=== PATIENT | female | born 1990 | race Caucasian/White ===

== ENCOUNTER 2017-04-16 00:38 | Emergency (ER) | payer MEDICAID ==
[~2017-04-16] VITALS: Ht 175.3 cm; Wt 109.0 kg
[~2017-04-16 00:38] MED LIST: SERT50 PO
[2017-04-16 00:41] VITALS: BP 172/84; PULSE 96; RESP 16; TEMP 98.4; O2SAT 99
[2017-04-16] MEDS ORDERED: LORA-474 SL (00:48)
--- NOTE | 2017-04-16 01:12 | PD ---
HPI Chief Complaint: Dizziness Time Seen by Provider: 01:04 Travel History International Travel<30 days: No Contact w/Intl Traveler<30days: No Traveled to known affect area: No History of Present Illness HPI To 26 old woman who presents emergent from complaining of dizziness, feeling feverish, with some cough and stuffiness that started this morning. She is a history of anxiety. She states she also started having some abnormal bleeding. Her last initial period was about a week or 2 ago but she started having a little more bleeding today. Denies any abdominal pain. No vaginal discharge. No other complaints. History Past Medical History Narrative Medical Anxiety LMP: 04/16/17 : 1 Para: 1 Past Surgical History Surgical History: No Previous Surgery Social History Alcohol Use: No Tobacco Use: Yes (12PPD) Allergies-Medications (Allergen,Severity, Reaction): Coded Allergies: No Known Allergies (Verified , 04/16/17) Reported Meds & Prescriptions Reported Meds & Active Scripts Active Reported Ativan (Lorazepam) 1 Mg Tab 1 Mg SL BID PRN Review of Systems Except as stated in HPI: all other systems reviewed are Neg Physical Exam Narrative GENERAL: Well-appearing 26 year-old woman, no acute distress. SKIN: Focused skin assessment warm/dry. HEAD: Atraumatic. Normocephalic. EYES: Pupils equal and round. No scleral icterus. No injection or drainage. ENT: No nasal bleeding or discharge. Mucous membranes pink and moist. TMs normal. Throat is normal. NECK: Trachea midline. No JVD. No adenopathy. CARDIOVASCULAR: Regular rate and rhythm. No murmur appreciated. RESPIRATORY: No accessory muscle use. Clear to auscultation. Breath sounds equal bilaterally. GASTROINTESTINAL: Abdomen soft, non-tender, nondistended. Hepatic and splenic margins not palpable. MUSCULOSKELETAL: No obvious deformities. Data Data Last Documented VS Vital Signs Date Time Temp Pulse Resp B/P Pulse Ox O2 Delivery O2 Flow Rate FiO2 04/16/17 00:41 98.4 96 16 172/84 99 Room Air Orders Ed Urine Pregnancytest Poc (04/16/17 01:10) MDM Medical Decision Making Medical Screen Exam Complete: Yes Emergency Medical Condition: Yes Differential Diagnosis URI, viral syndrome, dehydration, other Narrative Course Medical decision making So 26 old woman presents emergent heart sounds are she started sick. She is a little bit feverish, dizzy, with some cough and stuffiness. She looks well. She is a little bit abnormal bleeding. We'll check a . Otherwise outpatient follow-up, supportive treatment. Diagnosis Primary Impression: URI (upper respiratory infection) Additional Instructions: Take [id number] analgesics as needed for cough cold symptoms. Drink plenty of fluids and stay well-hydrated. Follow-up with her primary doctor for not completely well in 3-5 days. Med/Other Pt SpecificInfo: No Change to Meds Disposition: 01 DISCHARGE HOME Condition: Stable Cristóbal Lynn MD Apr 16, 2017 01:12
== END 2017-04-16 01:35 | disposition home or self-care (01) ==
LOC: NEPC 00:38
DX: J06.9 Acute upper respiratory infection, unspecified (principal); F17.200 Nicotine dependence, unspecified, uncomplicated
CPT/HCPCS: 84703; 99282

== ENCOUNTER 2018-02-22 12:29 | Emergency (ER) | payer MEDICAID ==
[~2018-02-22] VITALS: Ht 175.3 cm; Wt 112.0 kg
[~2018-02-22 12:29] MED LIST changes: +LORA-474 SL; -SERT50 PO
[2018-02-22 12:50] VITALS: BP 183/91; PULSE 81; RESP 17; TEMP 98.6; O2SAT 99
[2018-02-22 13:54] LABS: AUTOMATED NEUTROPHIL # 7.8 TH/MM3 (1.8-7.7); BASOPHIL % 0.4 % (0.0-2.0); EOSINOPHIL # 0.1 TH/MM3 (0-0.4); EOSINOPHIL % 0.5 % (0.0-4.0); HEMATOCRIT 43.8 % (35.0-46.0); HEMOGLOBIN 14.6 GM/DL (11.6-15.3); LYMPH % 20.1 % (9.0-44.0); LYMPHOCYTE # 2.3 TH/MM3 (1.0-4.8); MEAN CELL VOLUME 89.3 FL (80.0-100.0); MEAN CORPUSCULAR HEMOGLOBIN 29.8 PG (27.0-34.0); MEAN CORPUSCULAR HGB CONC 33.4 % (32.0-36.0); MEAN PLATELET VOLUME 9.5 FL (7.0-11.0); MONOCYTE # 1.1 TH/MM3 (0-0.9); PLATELET COUNT 189 TH/MM3 (150-450); RED BLOOD COUNT 4.91 MIL/MM3 (4.00-5.30); RED CELL DISTRIBUTION WIDTH 14.9 % (11.6-17.2); WHITE BLOOD COUNT 11.3 TH/MM3 (4.0-11.0)
[2018-02-22 14:06] LABS: ALBUMIN 3.5 GM/DL (3.4-5.0); AST (GOT) 7 U/L (15-37); BICARBONATE 22.6 MEQ/L (21.0-32.0); BLOOD UREA NITROGEN 13 MG/DL (7-18); CALCIUM 9.2 MG/DL (8.5-10.1); CHLORIDE 106 MEQ/L (98-107); CREATININE 0.79 MG/DL (0.50-1.00); GLOMERULAR FILTRATION RATE 89 ML/MIN (>89); GLUCOSE,RANDOM 84 MG/DL (74-106); SODIUM (NA) 139 MEQ/L (136-145)
[2018-02-22 14:10] LABS: ALKALINE PHOSPHATASE 58 U/L (45-117); ALT (GPT) 20 U/L (10-53); TOTAL BILIRUBIN ADULT 0.3 MG/DL (0.2-1.0); TOTAL PROTEIN 8.1 GM/DL (6.4-8.2)
[2018-02-22 14:19] VITALS: PULSE 84; RESP 20; TEMP 99.1; O2SAT 98
[2018-02-22] MEDS ORDERED: PENICILLIN G BENZATHINE 1,200,000 UNITS/2 ML SYRINGE IM ONE (14:30)
[2018-02-22] MEDS ORDERED: DEXAMETHASONE SOD PHOS 20 MG/5 ML VIAL IM ONE (14:30)
[2018-02-22] MEDS ORDERED: MEDR4PAK PO (14:35)
--- NOTE | 2018-02-22 14:40 | PD ---
HPI Chief Complaint: ENT Complaint Time Seen by Provider: 14:27 Travel History International Travel<30 days: No Contact w/Intl Traveler<30days: No Traveled to known affect area: No History of Present Illness HPI Patient came in complaining of a sore throat that she has been having for the past 5-6 days, she then followed up at [facility] where she had a test that was positive for strep C and the patient was given Decadron and started on amoxicillin. Patient denies any nausea vomiting diarrhea, fever, rash, headache/neck pain/neck stiffness/back pain, abdominal pain. Patient also denies any associated dysuria/frequency/urgency. No known drug allergy Past medical history significant for anxiety half pack a day smoker and has history of panic attacks. PFSH Past Medical History ADHD: No Anxiety: Yes Cancer: No Diabetes: No Diminished Hearing: No Headaches: No Psychiatric: Yes Immunizations Current: Yes Migraines: No Seizures: No Thyroid Disease: No Ulcer: No ?: Not : 1 Para: 1 Miscarriage: 0 : 0 Past Surgical History Appendectomy: No Section: No Cholecystectomy: No Social History Alcohol Use: No Tobacco Use: Yes (1/2PPD) Substance Use: No Allergies-Medications (Allergen,Severity, Reaction): Coded Allergies: No Known Allergies (Verified Allergy, Unknown, 02/22/18) Reported Meds & Prescriptions Reported Meds & Active Scripts Active Medrol Dosepak (Methylprednisolone) 4 Mg Dspk 4 Mg PO DIRECTED Per Pharmacist direction Reported Ativan (Lorazepam) 1 Mg Tab 1 Mg SL BID PRN Review of Systems General / Constitutional: No: Fever Eyes: No: Visual changes HENT: Positive: Sore Throat Cardiovascular: No: Chest Pain or Discomfort Respiratory: No: Shortness of Breath Gastrointestinal: No: Abdominal Pain Genitourinary: No: Dysuria Musculoskeletal: No: Pain Skin: No Rash Neurologic: No: Weakness Psychiatric: No: Depression Endocrine: No: Polydipsia Hematologic/Lymphatic: No: Easy Bruising Physical Exam Narrative GENERAL: SKIN: Warm and dry. HEAD: Atraumatic. Normocephalic. EYES: Pupils equal and round. No scleral icterus. No injection or drainage. ENT: No nasal bleeding or discharge. Mucous membranes pink and moist. Erythematous edematous and exudates present NECK: Trachea midline. No JVD. Anterior cervical lymphadenopathy present CARDIOVASCULAR: Regular rate and rhythm. RESPIRATORY: No accessory muscle use. Clear to auscultation. Breath sounds equal bilaterally. GASTROINTESTINAL: Abdomen soft, non-tender, nondistended. Hepatic and splenic margins not palpable. MUSCULOSKELETAL: Extremities without clubbing, cyanosis, or edema. No obvious deformities. NEUROLOGICAL: Awake and alert. No obvious cranial nerve deficits. Motor grossly within normal limits. Five out of 5 muscle strength in the arms and legs. Normal speech. PSYCHIATRIC: Appropriate mood and affect; insight and judgment normal. Data Data Last Documented VS Vital Signs Date Time Temp Pulse Resp B/P (MAP) Pulse Ox O2 Delivery O2 Flow Rate FiO2 02/22/18 14:19 99.1 84 20 98 Room Air 02/22/18 12:50 183/91 (121) Orders Orders Complete Blood Count With Diff (02/22/18 12:52) Comprehensive Metabolic Panel (02/22/18 12:52) Lactic Acid Sepsis Protocol (02/22/18 12:52) Dexamethasone Inj (Decadron Inj) (02/22/18 14:30) Penicillin G Benzathine Inj (Bicillin L- (02/22/18 14:30) Labs Laboratory Tests Test 02/22/18 13:20 White Blood Count 11.3 TH/MM3 Red Blood Count 4.91 MIL/MM3 Hemoglobin 14.6 GM/DL Hematocrit 43.8 % Mean Corpuscular Volume 89.3 FL Mean Corpuscular Hemoglobin 29.8 PG Mean Corpuscular Hemoglobin Concent 33.4 % Red Cell Distribution Width 14.9 % Platelet Count 189 TH/MM3 Mean Platelet Volume 9.5 FL Neutrophils (%) (Auto) 69.0 % Lymphocytes (%) (Auto) 20.1 % Monocytes (%) (Auto) 10.0 % Eosinophils (%) (Auto) 0.5 % Basophils (%) (Auto) 0.4 % Neutrophils # (Auto) 7.8 TH/MM3 Lymphocytes # (Auto) 2.3 TH/MM3 Monocytes # (Auto) 1.1 TH/MM3 Eosinophils # (Auto) 0.1 TH/MM3 Basophils # (Auto) 0.0 TH/MM3 CBC Comment DIFF FINAL Differential Comment Blood Urea Nitrogen 13 MG/DL Creatinine 0.79 MG/DL Random Glucose 84 MG/DL Total Protein 8.1 GM/DL Albumin 3.5 GM/DL Calcium Level 9.2 MG/DL Alkaline Phosphatase 58 U/L Aspartate Amino Transf (AST/SGOT) 7 U/L Alanine Aminotransferase (ALT/SGPT) 20 U/L Total Bilirubin 0.3 MG/DL Sodium Level 139 MEQ/L Potassium Level 3.6 MEQ/L Chloride Level 106 MEQ/L Carbon Dioxide Level 22.6 MEQ/L Anion Gap 10 MEQ/L Estimat Glomerular Filtration Rate 89 ML/MIN Lactic Acid Level 1.3 mmol/L MDM Medical Decision Making Medical Screen Exam Complete: Yes Emergency Medical Condition: Yes Medical Record Reviewed: Yes Differential Diagnosis Peritonsillar abscess versus pharyngitis versus tonsillitis Narrative Course Clinically the patient has evidence of pharyngitis, he has already proven strep C pharyngitis per [facility], patient is already been given Decadron IM 1 however she was not given a Medrol Dosepak to go home on, but she was given amoxicillin indication that she was she has been taking for the past 2 days. Patient came here because she felt like she was not getting better. The patient has been advised that she has no evidence of any peritonsillar abscess nor any evidence of extension of her abscess into the floor of her mouth clinically and thus she does not qualify for any type of surgical intervention at this present time. And that she only needs to continue her medication in order to improve. I advised the patient that it will take several days before this starts to improve since it took several days to get to this condition. CBC shows no leukocytosis no left shift no evidence of anemia and normal platelet count Electrolytes are all within normal limits, normal kidney liver functions, normal lactic acid. Diagnosis Primary Impression: Acute bacterial pharyngitis Patient Instructions: General Instructions, Pharyngitis (ED) Additional Instructions: Today you were provided with Decadron 10 mg IM, 1 shot of Bicillin LA 1.2 million units IM, and your advised to continue Medrol Dosepak as well as your amoxicillin medication you have already been prescribed. Scripts Methylprednisolone Dosepak (Medrol Dosepak) 4 Mg Dspk 4 MG PO DIRECTED, #1 DSPK 0 Refills Per Pharmacist direction Prov: Abel Ruiz MD 02/22/18 Disposition: 01 DISCHARGE HOME Condition: Stable Abel Ruiz MD Feb 22, 2018 14:40
== END 2018-02-22 17:06 | disposition home or self-care (01) ==
LOC: NEPD 12:29
DX: J02.9 Acute pharyngitis, unspecified (principal); F41.9 Anxiety disorder, unspecified; F17.200 Nicotine dependence, unspecified, uncomplicated
CPT/HCPCS: 80053; 83605; 85025; 87081; 87880; 96372; 99283; J0561; J1100